=== PATIENT | male | born 1960 | race Caucasian/White ===

== ENCOUNTER → 2016-09-16 | Outpatient (REF) | payer BC ==
[~2016-09-16] MED LIST: ALLO10TA PO; ASPI1TAB; COUM2.5T11 PO; FERR324T12 PO; MULTCAP PO; OXYC-299 PO; PERCOCET PO; TYLE325T5 PO; VITA500T3 PO
[2016-09-16 11:42] LABS: ALT/SGPT 34 U/L (12-78); ANION GAP 10 MEQ/L (8-16); BLOOD UREA NITROGEN 15 MG/DL (7-18); CALCIUM LEVEL 8.7 MG/DL (8.5-10.1); CARBON DIOXIDE LEVEL 29 MEQ/L (21-32); CHLORIDE LEVEL 105 MEQ/L (98-107); CHOLESTEROL LEVEL 150 MG/DL (<200); CREATININE FOR GFR 0.95 MG/DL (0.70-1.30); GLOMERULAR FILTRATION RATE > 60.0 (>56); GLUCOSE, FASTING 97 MG/DL (70-105); POTASSIUM SERUM 3.8 MEQ/L (3.5-5.1); SODIUM LEVEL 144 MEQ/L (136-145); TRIGLYCERIDES LEVEL 135 MG/DL (<150)
== END | disposition home or self-care (01) ==
LOC: M SFHCCLAY 07:07
PROVIDERS: ATTEND Family Medicine
DX: E78.00 Pure hypercholesterolemia, unspecified (principal)

== ENCOUNTER → 2016-11-22 | Outpatient (REF) | payer BC ==
[2016-11-22 11:45] LABS: BASO % 0.6 % (0.0-1.0); EOS # 0.2 K/mm3 (0.0-0.50); EOS % 2.8 % (0.0-3.0); LARGE UNSTAINED CELL # 0.1 K/mm3 (0.0-0.4); LARGE UNSTAINED CELL % 1.1 % (0.0-4.0); LYMPH # 1.1 K/mm3 (1.5-4.5); LYMPH % 17.9 % (24.0-44.0); MEAN CORPUSCULAR HGB CONC 33.2 g/dl (32.0-36.5); MEAN CORPUSCULAR VOLUME 87.3 fl (80.0-96.0); MONO # 0.3 K/mm3 (0.0-0.8); MONO % 5.6 % (0.0-5.0); NEUTROPHILS # 4.2 K/mm3 (1.8-7.7); NEUTROPHILS % 72.1 % (36.0-66.0); PLATELET COUNT, AUTOMATED 173 k/mm3 (150-450); RED CELL DISTRIBUTION WIDTH 14.1 % (11.5-14.5); WHITE BLOOD COUNT 5.8 K/mm3 (4.0-10.0)
[2016-11-22 12:06] LABS: VITAMIN B12 LEVEL 1065 PG/ML (247-911)
[2016-11-22 12:38] LABS: ALBUMIN 3.9 GM/DL (3.2-5.2); ALBUMIN/GLOBULIN RATIO 1.26 (1.00-1.93); ALKALINE PHOSPHATASE 91 U/L (45-117); ALT/SGPT 46 U/L (12-78); ANION GAP 9 MEQ/L (8-16); AST/SGOT 32 U/L (15-37); BILIRUBIN,TOTAL 0.5 MG/DL (0.2-1.0); BLOOD UREA NITROGEN 14 MG/DL (7-18); CALCIUM LEVEL 9.4 MG/DL (8.5-10.1); CARBON DIOXIDE LEVEL 27 MEQ/L (21-32); CHLORIDE LEVEL 105 MEQ/L (98-107); CREATININE FOR GFR 0.86 MG/DL (0.70-1.30); FERRITIN 117 NG/ML (26-388); GLOMERULAR FILTRATION RATE > 60.0 (>56); GLUCOSE, FASTING 101 MG/DL (70-105); MAGNESIUM LEVEL 1.8 MG/DL (1.8-2.4); PERCENT SATURATION 28.3 % (19.7-37.4); SODIUM LEVEL 141 MEQ/L (136-145); TOTAL IRON BINDING CAPACITY 357 UG/DL (250-450)
[2016-11-22 13:40] LABS: PRETREATED FOLATE FOR RBCFOL > 24.0 NG/ML
== END ==
LOC: M LABDRAWC 11:31
PROVIDERS: ATTEND Surgery
DX: K91.2 Postsurgical malabsorption, not elsewhere classified (principal); E55.9 Vitamin D deficiency, unspecified; Z98.84 Bariatric surgery status

== ENCOUNTER → 2017-07-13 | Outpatient (REF) | payer BC ==
[~2017-07-13] MED LIST changes: -COUM2.5T11 PO; +COUM2.5T17 PO; +OXYC-141 PO; -OXYC-299 PO
== END ==
LOC: M SFHCCLAY 07:01
PROVIDERS: ATTEND Family Medicine
DX: Z98.84 Bariatric surgery status (principal)

== ENCOUNTER 2017-08-11 07:16 | Day surgery (SDC) | payer BC ==
[~2017-08-11] VITALS: Ht 175.3 cm; Wt 120.2 kg
[~2017-08-11 07:16] MED LIST changes: +ATOR1TAB19 PO; +HYDR25TAB PO; +LIDOCAINE 1% MDV 20ML VIAL SQ PRN; +LISI-538 PO; +LR 1,000 ML IV ONE; +PANT40TA2 PO; +PRESCAP6 PO
[2017-08-11] MEDS ORDERED: fentaNYL 100 MCG/2 ML INJECTION (J3010) As Ordered ONE ×2 (07:59→09:01)
[2017-08-11] MEDS ORDERED: MIDAZOLAM INJ 2 MG/2 ML VIAL (J2250) As Ordered ONE (07:59)
[2017-08-11] MEDS ORDERED: PROPOFOL 200 MG/20 ML VIAL As Ordered ONE (08:01)
[2017-08-11] MEDS ORDERED: ONDANSETRON 4MG/2ML VIAL (J2405) As Ordered ONE (08:02)
[2017-08-11] MEDS ORDERED: LIDOCAINE 2% INJ 100 MG/5 ML SDV (FOR ANES.) As Ordered ONE (08:02)
[2017-08-11] MEDS ORDERED: BUPIVACAINE HCL 0.25% 30 ML VIAL As Ordered ONE (08:14)
[2017-08-11] MEDS ORDERED: ROCURONIUM BROMIDE 50 MG/5 ML VIAL As Ordered ONE ×2 (08:22→09:23)
[2017-08-11] MEDS ORDERED: NEOSTIGMINE 10 MG/10 ML VIAL (J2710) As Ordered ONE (09:46)
[2017-08-11] MEDS ORDERED: GLYCOPYRROLATE INJ 0.2 MG/ML 2 ML VIAL As Ordered ONE (09:46)
[2017-08-11] MEDS ORDERED: fentaNYL 100 MCG/2 ML INJECTION (J3010) IV PRN (11:00)
[2017-08-11] MEDS ORDERED: NORCO, ANEXSIA 5/325MG TABLET (HYDROcodone/ACETAMINOPHEN) PO PRN (11:00)
[2017-08-11] MEDS ORDERED: ONDANSETRON 4MG/2ML VIAL (J2405) IV PRN (11:00)
[2017-08-11] MEDS ORDERED: ACETAMINOPHEN TAB 650MG DOSE (2X325MG) PO PRN (11:00)
[2017-08-11] MEDS ORDERED: PERCOCET 5MG/325MG TAB PO PRN (11:00)
[2017-08-11] MEDS ORDERED: MORPHINE 10 MG/ML 1ML VIAL IV PRN (11:00)
[2017-08-11] MEDS ORDERED: METOCLOPRAMIDE INJ 10MG/2ML VIAL (J2765) IV PRN (11:00)
[2017-08-11] MEDS ORDERED: LR 1,000 ML IV SCH (11:00)
[2017-08-11 13:10] VITALS: BP 158/95
--- NOTE | 2017-08-12 12:38 | RO ---
DATE OF PROCEDURE: 08/11/2017 PREOPERATIVE DIAGNOSIS: Ventral incisional hernia. POSTOPERATIVE DIAGNOSIS: Multiple ventral incisional hernias (3). PROCEDURE PERFORMED: Repair of ventral incisional hernias with mesh. SURGEON: Dr. Jorge Lai PC TECH: ANESTHESIA: General. INDICATIONS FOR PROCEDURE: The patient is a 57-year-old man who has undergone several laparoscopic procedures using a site above the umbilicus. He has developed a hernia in this area which protrudes slightly to the left of the umbilicus. He has developed some discomfort and is now for repair. OPERATIVE PROCEDURE: The patient was placed under general endotracheal anesthesia. The patient's abdomen was prepped and draped in a sterile fashion. An approximately 4-5 cm incision was made beginning in the midline and extending down around the upper right aspect of the umbilicus. The incision was deepened into the subcutaneous tissues. In deepening the incision toward the fascia, the patient was noted to have not one, but a total of three fascial defects. The smallest and most superior was perhaps 3-5 mm in size and had a very small frond of fat protruding. The next inferior was 6-8 mm in size and contained a small frond of omentum that was entrapped. The largest defect and the one that had been palpable contained some incarcerated omentum within a hernia sac that was perhaps 3 cm x 4 cm x 3 cm. This was isolated at the level of the fascia and the sac was incised and the omentum was then transected carefully with the cautery and the sac and the contents were removed. The defect at this level was perhaps 1.5 cm in diameter. Palpation through the largest defect showed no other significant abnormalities and there were no significant adhesions of the intra-abdominal tissues around the umbilicus. I elected to connect the three defects down the midline and place a piece of prosthetic mesh to reinforce this area. The fascial bridges were incised and this yielded a defect approximately 4 to 4.5 cm in length. A 6 x 11 cm piece of ultra Pro was selected and a portion of this was cut, yielding a roughly 5 x 7 cm patch. This was trimmed at the corners. This was sutured at the superior and inferior aspects of the defect with simple sutures of #2-0 Ethibond. Three additional Ethibond sutures were placed down each side of the defect suturing this approximately 2 cm back from the edge of the fascia on each side. This appeared to give a nice placement of the mesh. The fascial edges were then trimmed slightly and the midline fascia was closed with interrupted simple sutures of #0 Ethibond. Approximately 20 mL of 0.25% Marcaine were then infiltrated around the wound and into the fascia. The umbilical skin was tacked down to the fascia with a single #1 Vicryl suture. The subcutaneous tissues were approximated with several buried sutures of #1 Vicryl. Skin edges were approximated with a running subcuticular #4-0 Vicryl and Steri-Strips. A light dressing was applied. The patient tolerated the procedure well without apparent complication. He was awakened in the operating room, extubated and moved to the recovery room in stable condition. SIVAKUMAR
== END 2017-08-11 13:17 | disposition home or self-care (01) ==
LOC: M SDC 07:16
PROVIDERS: ATTEND Surgery
DX: K43.9 Ventral hernia without obstruction or gangrene (principal); I10 Essential (primary) hypertension; E78.00 Pure hypercholesterolemia, unspecified; E11.9 Type 2 diabetes mellitus without complications; K21.9 Gastro-esophageal reflux disease without esophagitis; E66.01 Morbid (severe) obesity due to excess calories; M12.9 Arthropathy, unspecified; G47.33 Obstructive sleep apnea (adult) (pediatric); Z79.899 Other long term (current) drug therapy; Z98.84 Bariatric surgery status; Z87.442 Personal history of urinary calculi; Z96.643 Presence of artificial hip joint, bilateral
CPT/HCPCS: 49560; 49568; 88302; C1781; J2250; J2405; J2710; J3010

== ENCOUNTER → 2018-01-11 | Outpatient (CLI) | payer OTHER | LOC: M CLY 11:45 | DX: R07.81 Pleurodynia (principal) | CPT/HCPCS: 71101 ==

== ENCOUNTER → 2018-03-01 | Outpatient (REF) | payer OTHER ==
[2018-03-01 11:36] LABS: HEMATOCRIT 47.2 % (42.0-52.0); HEMOGLOBIN 15.1 g/dl (13.5-17.5); MEAN CORPUSCULAR HEMOGLOBIN 28.1 pg (27.0-33.0); MEAN CORPUSCULAR VOLUME 87.9 fl (80.0-96.0); PLATELET COUNT, AUTOMATED 213 10^3/uL (150-450); RED BLOOD COUNT 5.37 10^6/uL (4.30-6.10); RED CELL DISTRIBUTION WIDTH 14.8 % (11.5-14.5); WHITE BLOOD COUNT 7.2 10^3/uL (4.0-10.0)
[2018-03-01 11:55] LABS: PTH INTACT 52.3 PG/ML (18.5-88.0)
[2018-03-01 12:00] LABS: ALBUMIN 3.7 GM/DL (3.2-5.2); ALBUMIN/GLOBULIN RATIO 1.16 (1.00-1.93); ALKALINE PHOSPHATASE 81 U/L (45-117); ALT/SGPT 34 U/L (12-78); ANION GAP 8 MEQ/L (8-16); AST/SGOT 22 U/L (7-37); BILIRUBIN,TOTAL 0.4 MG/DL (0.2-1.0); BLOOD UREA NITROGEN 13 MG/DL (7-18); CALCIUM LEVEL 8.9 MG/DL (8.5-10.1); CARBON DIOXIDE LEVEL 28 MEQ/L (21-32); CHLORIDE LEVEL 105 MEQ/L (98-107); CHOLESTEROL LEVEL 182 MG/DL (<200); CHOLESTEROL RISK RATIO 3.192 (<5); CREATININE FOR GFR 0.91 MG/DL (0.70-1.30); GLOMERULAR FILTRATION RATE > 60.0 (>56); GLUCOSE, FASTING 96 MG/DL (70-100); HDL CHOLESTEROL 57 MG/DL (>40); NON-HDL-C 125 MG/DL; POTASSIUM SERUM 4.3 MEQ/L (3.5-5.1); SODIUM LEVEL 141 MEQ/L (136-145); TOTAL PROTEIN 6.9 GM/DL (6.4-8.2); TRIGLYCERIDES LEVEL 215 MG/DL (<150)
[2018-03-01 13:01] LABS: ESTIMATED AVERAGE GLUCOSE 128 MG/DL (60-110); HEMOGLOBIN A1c 6.1 %
== END ==
LOC: M SFHCCLAY 08:08
DX: D50.0 Iron deficiency anemia secondary to blood loss (chronic) (principal); Z98.84 Bariatric surgery status; E11.9 Type 2 diabetes mellitus without complications; R07.81 Pleurodynia; E78.00 Pure hypercholesterolemia, unspecified

== ENCOUNTER → 2018-07-05 | Outpatient (CLI) | payer OTHER | LOC: M CLY 10:54 | DX: M54.2 Cervicalgia (principal) ==

== ENCOUNTER → 2019-01-24 | Outpatient (REF) | payer OTHER ==
[~2019-01-24] MED LIST changes: -ASPI1TAB; +ASPI81TA26; -LIDOCAINE 1% MDV 20ML VIAL SQ PRN; -LR 1,000 ML IV ONE; -PANT40TA2 PO; +PANT40TA3 PO
== END ==
LOC: M SFHCCLAY 07:35
PROVIDERS: ATTEND Family Medicine
DX: E11.9 Type 2 diabetes mellitus without complications (principal); I10 Essential (primary) hypertension; R07.89 Other chest pain; Z98.84 Bariatric surgery status; Z53.9 Procedure and treatment not carried out, unspecified reason

== ENCOUNTER → 2019-07-31 | Outpatient (REF) | payer OTHER ==
[~2019-07-31] MED LIST changes: +CYAN500T8 PO; -VITA500T3 PO
== END ==
LOC: M SFHCCLAY 09:54
PROVIDERS: ATTEND Family Medicine
DX: M79.602 Pain in left arm (principal); M79.601 Pain in right arm

== ENCOUNTER → 2019-10-09 | Outpatient (REF) | payer OTHER | LOC: M LAB REF 17:31 | PROVIDERS: ATTEND Dermatology | DX: D49.2 Neoplasm of unspecified behavior of bone, soft tissue, and skin (principal) ==

== ENCOUNTER → 2020-08-19 | Outpatient (REF) | payer OTHER ==
[~2020-08-19] MED LIST changes: +CYAN500T14 PO; -CYAN500T8 PO; +PANT40TA29 PO; -PANT40TA3 PO
== END ==
LOC: M SFHCCLAY 08:18
PROVIDERS: ATTEND Family Medicine
DX: Z28.21 Immunization not carried out because of patient refusal (principal); E11.9 Type 2 diabetes mellitus without complications; I10 Essential (primary) hypertension; Z98.84 Bariatric surgery status

== ENCOUNTER → 2020-10-15 | Outpatient (CLI) | payer OTHER ==
[~2020-10-15] MED LIST changes: +HYDR-3490 PO; -HYDR25TAB PO; -LISI-538 PO; +LISI20TA20 PO; +LISI20TA33 PO; +ROSU10TA6 PO; +VITMTA PO
== END ==
LOC: M LABSMTC 11:07
PROVIDERS: ATTEND Anesthesiology
DX: Z01.812 Encounter for preprocedural laboratory examination (principal); Z20.822 Contact with and (suspected) exposure to COVID-19

== ENCOUNTER 2020-10-20 09:37 | Day surgery (SDC) | payer OTHER ==
[~2020-10-20] VITALS: Ht 175.3 cm; Wt 126.1 kg
[~2020-10-20 09:37] MED LIST changes: +LIDOCAINE 2% 100MG/5ML SDV (FOR ANES.) As Ordered ONE; +NS 1,000 ML IV ONE; +fentaNYL 100 MCG/2 ML INJECTION (J3010) As Ordered ONE; +propofoL 200 MG/20 ML VIAL As Ordered ONE
--- NOTE | 2020-10-20 11:10 | ROOR ---
Patient Name: Robel Kirkland Procedure Date: 10/20/2020 10:51 AM Date of : 1960 Age: 60 Room: [facility] Gender: Male Note Status: Finalized Procedure: Upper GI endoscopy + Cold Snare Polypectomy + Hemoclip Indications: Heme positive stool Providers: Feroz Daley MD Referring MD: Ray Grullon Requesting Provider: Medicines: Monitored Anesthesia Care Complications: No immediate complications. Procedure: Pre-Anesthesia Assessment: - The heart rate, respiratory rate, oxygen saturations, blood pressure, adequacy of pulmonary ventilation, and response to care were monitored throughout the procedure. The Endoscope was introduced through the mouth, and advanced to the second part of duodenum. The upper GI endoscopy was accomplished without difficulty. The patient tolerated the procedure well. Findings: The Z-line was regular and was found 40 cm from the incisors. Evidence of a gastric bypass was found. A gastric pouch with a medium size was found. The staple line appeared intact. The gastrojejunal anastomosis was characterized by healthy appearing mucosa. Diffuse moderate inflammation characterized by adherent blood, congestion (edema), erosions and mucus was found in the gastric body. A single small pedunculated polyp with no stigmata of recent bleeding was found in the stomach. The polyp was removed with a cold snare. Resection and retrieval were complete. To prevent bleeding after the polypectomy, one hemostatic clip was successfully placed (MR conditional). There was no bleeding at the end of the procedure. The exam was otherwise without abnormality. Impression: - Z-line regular, 40 cm from the incisors. - Gastric bypass with a medium-sized pouch and intact staple line. Gastrojejunal anastomosis characterized by healthy appearing mucosa. - Gastritis. - A single gastric polyp. Resected and retrieved. Clip (MR conditional) was placed. - The examination was otherwise normal. Recommendation: - Patient has a contact number available for emergencies. The signs and symptoms of potential delayed complications were discussed with the patient. Return to normal activities tomorrow. Written discharge instructions were provided to the patient. - Resume previous diet. - Follow an antireflux regimen. - Use Prilosec (omeprazole) 40 mg PO daily. - Await pathology results. - Telephone GI clinic for pathology results in 1 week. - Return to referring physician. - The findings and recommendations were discussed with the patient. Procedure Code(s): --- Professional --- 64550, Esophagogastroduodenoscopy, flexible, transoral; with removal of tumor(s), polyp(s), or other lesion(s) by snare technique Diagnosis Code(s): --- Professional --- Z98.84, Bariatric surgery status K29.70, Gastritis, unspecified, without bleeding K31.7, Polyp of stomach and duodenum R19.5, Other fecal abnormalities CPT copyright 2019 [employer] [place] [employer]. All rights reserved. The codes documented in this report are preliminary and upon dental chair assembler review may be revised to meet current compliance requirements. Feroz Daley MD Feroz Daley MD 10/20/2020 11:09:45 AM Electronically signed by Feroz Daley MD Number of Addenda: 0 Note Initiated On: 10/20/2020 10:51 AM Estimated Blood Loss: Estimated blood loss: none.
--- NOTE | 2020-10-20 11:28 | ROOR ---
Patient Name: Robel Kirkland Procedure Date: 10/20/2020 10:52 AM Date of : 1960 Age: 60 Room: [facility] Gender: Male Note Status: Finalized Procedure: Total Colonoscopy to Cecum + Cold Snare Polypectomy + Hemoclip Indications: Positive fecal immunochemical test Providers: Feroz Daley MD Referring MD: Jose F Burkett MD Requesting Provider: Medicines: Monitored Anesthesia Care Complications: No immediate complications. Procedure: Pre-Anesthesia Assessment: - The heart rate, respiratory rate, oxygen saturations, blood pressure, adequacy of pulmonary ventilation, and response to care were monitored throughout the procedure. The Colonoscope was introduced through the anus and advanced to the cecum, identified by appendiceal orifice and ileocecal valve. The colonoscopy was performed without difficulty. The patient tolerated the procedure well. The quality of the bowel preparation was good. Findings: The perianal and digital rectal examinations were normal. Non-bleeding internal hemorrhoids were found during retroflexion. The hemorrhoids were small and Grade I (internal hemorrhoids that do not prolapse). A small polyp was found in the ascending colon. The polyp was sessile. The polyp was removed with a jumbo cold forceps. Resection and retrieval were complete. A medium polyp was found in the transverse colon. The polyp was sessile. The polyp was removed with a cold snare. Resection and retrieval were complete. To prevent bleeding after the polypectomy, one hemostatic clip was successfully placed (MR conditional). There was no bleeding at the end of the procedure. The exam was otherwise without abnormality on direct and retroflexion views. Impression: - Non-bleeding internal hemorrhoids. - One small polyp in the ascending colon, removed with a jumbo cold forceps. Resected and retrieved. - One medium polyp in the transverse colon, removed with a cold snare. Resected and retrieved. Clip (MR conditional) was placed. - The examination was otherwise normal on direct and retroflexion views. - The exam was otherwise normal to the cecum. Recommendation: - Patient has a contact number available for emergencies. The signs and symptoms of potential delayed complications were discussed with the patient. Return to normal activities tomorrow. Written discharge instructions were provided to the patient. - High fiber diet. - Discharge patient to home. - Continue present medications. - Await pathology results. - Telephone GI clinic for pathology results in 1 week. - Return to referring physician. - The findings and recommendations were discussed with the patient. Procedure Code(s): --- Professional --- 33140, Colonoscopy, flexible; with removal of tumor(s), polyp(s), or other lesion(s) by snare technique 42179, 59, Colonoscopy, flexible; with biopsy, single or multiple Diagnosis Code(s): --- Professional --- K64.0, First degree hemorrhoids K63.5, Polyp of colon R19.5, Other fecal abnormalities CPT copyright 2019 [employer]. All rights reserved. The codes documented in this report are preliminary and upon operations inspector review may be revised to meet current compliance requirements. Feroz Daley MD Feroz Daley MD 10/20/2020 11:27:45 AM Electronically signed by Feroz Daley MD Number of Addenda: 0 Note Initiated On: 10/20/2020 10:52 AM Estimated Blood Loss: Estimated blood loss: none.
[2020-10-20 11:45] VITALS: BP 148/88
== END 2020-10-20 11:57 | disposition home or self-care (01) ==
LOC: M OPP 09:37
PROVIDERS: ATTEND Internal Medicine Gastroenterology
DX: R19.5 Other fecal abnormalities (principal); D12.2 Benign neoplasm of ascending colon; D12.3 Benign neoplasm of transverse colon; K64.0 First degree hemorrhoids; K31.7 Polyp of stomach and duodenum; K29.70 Gastritis, unspecified, without bleeding; Z98.84 Bariatric surgery status; I10 Essential (primary) hypertension; E78.5 Hyperlipidemia, unspecified; R12 Heartburn; M19.90 Unspecified osteoarthritis, unspecified site; Z96.643 Presence of artificial hip joint, bilateral; Z96.652 Presence of left artificial knee joint; Z79.899 Other long term (current) drug therapy
CPT/HCPCS: 43251; 45380; 45385; 88305; J3010

== ENCOUNTER → 2021-08-31 | Outpatient (REF) | payer OTHER ==
[~2021-08-31] MED LIST changes: -LIDOCAINE 2% 100MG/5ML SDV (FOR ANES.) As Ordered ONE; -NS 1,000 ML IV ONE; -fentaNYL 100 MCG/2 ML INJECTION (J3010) As Ordered ONE; -propofoL 200 MG/20 ML VIAL As Ordered ONE
== END ==
LOC: M SFHCCLAY 10:32
PROVIDERS: ATTEND Family Medicine
DX: E11.9 Type 2 diabetes mellitus without complications (principal); I10 Essential (primary) hypertension; N20.0 Calculus of kidney; Z53.8 Procedure and treatment not carried out for other reasons

== ENCOUNTER → 2022-03-02 | Outpatient (REF) | payer OTHER ==
[~2022-03-02] MED LIST changes: -LISI20TA20 PO; +LISI20TA37 PO
== END ==
LOC: M SFHCCLAY 10:43
PROVIDERS: ATTEND Family Medicine
DX: E11.9 Type 2 diabetes mellitus without complications (principal)

== ENCOUNTER → 2022-09-02 | Outpatient (CLI) | payer OTHER | LOC: M CLY 14:19 | PROVIDERS: ATTEND Family Medicine | DX: R05.9 Cough, unspecified (principal) ==

== ENCOUNTER → 2022-09-07 | Outpatient (REF) | payer OTHER | LOC: M SFHCCLAY 08:18 | PROVIDERS: ATTEND Family Medicine | DX: I10 Essential (primary) hypertension (principal); E11.9 Type 2 diabetes mellitus without complications; Z98.84 Bariatric surgery status; Z12.5 Encounter for screening for malignant neoplasm of prostate ==

== ENCOUNTER → 2022-09-12 | Outpatient (CLI) | payer OTHER | LOC: M SOG 08:05 | PROVIDERS: ATTEND Orthopaedic Surgery Adult Reconstructive Orthopaedic Surgery | DX: M25.561 Pain in right knee (principal); M25.562 Pain in left knee ==

== ENCOUNTER → 2022-12-26 | Outpatient (REF) | payer OTHER | LOC: M SFHCCAPE 13:46 | PROVIDERS: ATTEND Physician Assistant | DX: J02.9 Acute pharyngitis, unspecified (principal); J22 Unspecified acute lower respiratory infection ==

== ENCOUNTER → 2023-03-03 | Outpatient (REF) | payer OTHER ==
[2023-03-03 12:15] LABS: ALBUMIN 3.5 G/DL (3.2-5.2); ALKALINE PHOSPHATASE 72 U/L (46-116); ALT/SGPT 35 U/L (7.0-40); AST/SGOT 26 U/L (<34); BILIRUBIN,TOTAL 0.4 MG/DL (0.3-1.2); BLOOD UREA NITROGEN 13 MG/DL (9-23); CARBON DIOXIDE LEVEL 31 MMOL/L (20-31); CHLORIDE LEVEL 102 MMOL/L (98-107); CHOLESTEROL LEVEL 201 MG/DL (<200); CHOLESTEROL RISK RATIO 3.34 (<5); CREATININE FOR GFR 0.81 MG/DL (0.70-1.30); GLOMERULAR FILTRATION RATE > 60.0 (>49); GLUCOSE, FASTING 98 MG/DL (74-106); HDL CHOLESTEROL 60.1 MG/DL (>40); LDL CHOLESTEROL 102.7 MG/DL (<100); NON-HDL-C 140.9 MG/DL; SODIUM LEVEL 139 MMOL/L (136-145); TOTAL PROTEIN 6.4 G/DL (5.7-8.2); TRIGLYCERIDES LEVEL 191 MG/DL (<150)
[2023-03-03 12:28] LABS: HEMOGLOBIN A1c 6.6 % (4.0-6.0)
== END ==
LOC: M SFHCCLAY 09:04
PROVIDERS: ATTEND Family Medicine
DX: I10 Essential (primary) hypertension (principal); E11.9 Type 2 diabetes mellitus without complications; Z98.84 Bariatric surgery status

== ENCOUNTER → 2023-09-01 | Outpatient (REF) | payer MEDICARE, OTHER ==
[2023-09-01 12:26] LABS: ALT/SGPT 37 U/L (7.0-40); BLOOD UREA NITROGEN 18 MG/DL (9-23); CARBON DIOXIDE LEVEL 34 MMOL/L (20-31); CHLORIDE LEVEL 102 MMOL/L (98-107); CHOLESTEROL LEVEL 175 MG/DL (<200); CHOLESTEROL RISK RATIO 2.81 (<5); CREATININE FOR GFR 0.83 MG/DL (0.70-1.30); GLOMERULAR FILTRATION RATE > 60.0 (>49); GLUCOSE, FASTING 127 MG/DL (74-106); HDL CHOLESTEROL 62.2 MG/DL (>40); LDL CHOLESTEROL 72.4 MG/DL (<100); NON-HDL-C 112.8 MG/DL; POTASSIUM SERUM 4.2 MMOL/L (3.5-5.1); SODIUM LEVEL 142 MMOL/L (136-145); TRIGLYCERIDES LEVEL 202 MG/DL (<150)
[2023-09-01 13:08] LABS: HEMOGLOBIN A1c 7.2 % (4.0-6.0)
== END ==
LOC: M SFHCCLAY 08:54
PROVIDERS: ATTEND Family Medicine
DX: I10 Essential (primary) hypertension (principal); E11.9 Type 2 diabetes mellitus without complications; E78.00 Pure hypercholesterolemia, unspecified

== ENCOUNTER → 2023-10-03 | Outpatient (REF) | payer MEDICARE, OTHER ==
[2023-10-03 18:33] LABS: HIV 1&2 SCREEN NEGATIVE (NEGATIVE)
[2023-10-03 18:41] LABS: HEPATITIS C VIRUS ABY INDEX < 0.02 INDEX (<0.8)
[2023-10-03 18:42] LABS: HEPATITIS B CORE ANTIBODY IGM NEGATIVE (NEGATIVE)
== END ==
LOC: M SFHCCLAY 10:16
PROVIDERS: ATTEND Physician Assistant
DX: Z79.899 Other long term (current) drug therapy (principal)

== ENCOUNTER → 2024-03-06 | Outpatient (REF) | payer MEDICARE, OTHER ==
[~2024-03-06] MED LIST changes: -ROSU10TA6 PO; +ROSU10TA61 PO; +THERTAB52 PO; +TREM100I SC
[2024-03-06 17:32] LABS: HEMATOCRIT 45.6 % (42.0-52.0); HEMOGLOBIN 14.4 g/dl (13.5-17.5); MEAN CORPUSCULAR HEMOGLOBIN 28.6 pg (27.0-33.0); MEAN CORPUSCULAR HGB CONC 31.6 g/dl (32.0-36.5); MEAN CORPUSCULAR VOLUME 90.5 fl (80.0-96.0); PLATELET COUNT, AUTOMATED 203 10^3/uL (150-450); RED BLOOD COUNT 5.04 10^6/uL (4.30-6.10); WHITE BLOOD COUNT 6.7 10^3/uL (4.0-10.0)
[2024-03-06 18:03] LABS: ALBUMIN 3.7 G/DL (3.2-5.2); ALKALINE PHOSPHATASE 78 U/L (46-116); ALT/SGPT 43 U/L (7.0-40); AST/SGOT 39 U/L (<34); BILIRUBIN,TOTAL 0.4 MG/DL (0.3-1.2); BLOOD UREA NITROGEN 15 MG/DL (9-23); CALCIUM LEVEL 9.3 MG/DL (8.3-10.6); CARBON DIOXIDE LEVEL 32 MMOL/L (20-31); CHLORIDE LEVEL 102 MMOL/L (98-107); CHOLESTEROL LEVEL 174 MG/DL (<200); CHOLESTEROL RISK RATIO 2.95 (<5); CREATININE FOR GFR 0.84 MG/DL (0.70-1.30); GLOMERULAR FILTRATION RATE > 60.0 (>49); GLUCOSE, FASTING 113 MG/DL (74-106); HDL CHOLESTEROL 58.9 MG/DL (>40); LDL CHOLESTEROL 75.1 MG/DL (<100); MAGNESIUM LEVEL 1.8 MG/DL (1.8-2.4); NON-HDL-C 115.1 MG/DL; POTASSIUM SERUM 4.7 MMOL/L (3.5-5.1); PTH INTACT 49.4 PG/ML (18.5-88.0); SODIUM LEVEL 138 MMOL/L (136-145); TOTAL PROTEIN 6.7 G/DL (5.7-8.2); TRIGLYCERIDES LEVEL 200 MG/DL (<150); VITAMIN B12 LEVEL 730 PG/ML (211-911)
== END ==
LOC: M SFHCCLAY 10:16
PROVIDERS: ATTEND Family Medicine
DX: Z98.84 Bariatric surgery status (principal); Z79.899 Other long term (current) drug therapy; E11.9 Type 2 diabetes mellitus without complications; I10 Essential (primary) hypertension; E78.00 Pure hypercholesterolemia, unspecified; N20.0 Calculus of kidney

== ENCOUNTER 2024-03-25 06:58 | Day surgery (SDC) | payer MEDICARE, OTHER ==
[~2024-03-25] VITALS: Ht 175.3 cm; Wt 129.3 kg
[~2024-03-25 06:58] MED LIST changes: +NS 1,000 ML IV ONE
[2024-03-25] MEDS ORDERED: propofoL 200 MG/20 ML VIAL As Ordered ONE (07:02)
[2024-03-25 08:37] VITALS: TEMP 99.6
[2024-03-25 09:03] VITALS: BP 122/81; O2SAT 100
== END 2024-03-25 09:16 | disposition home or self-care (01) ==
LOC: M OPP 06:58
PROVIDERS: ATTEND Internal Medicine Gastroenterology
DX: Z12.11 Encounter for screening for malignant neoplasm of colon (principal); Z86.010 Personal history of colon polyps; D12.2 Benign neoplasm of ascending colon; K64.0 First degree hemorrhoids; K57.30 Diverticulosis of large intestine without perforation or abscess without bleeding; K22.89 Other specified disease of esophagus; Z98.84 Bariatric surgery status; R07.9 Chest pain, unspecified; E11.9 Type 2 diabetes mellitus without complications; G47.30 Sleep apnea, unspecified; Z99.89 Dependence on other enabling machines and devices; Z79.02 Long term (current) use of antithrombotics/antiplatelets; Z79.620 Long term (current) use of immunosuppressive biologic; Z79.899 Other long term (current) drug therapy

== ENCOUNTER → 2024-07-19 | Outpatient (REF) | payer MEDICARE, OTHER ==
[~2024-07-19] MED LIST changes: -NS 1,000 ML IV ONE
[2024-07-19 17:13] LABS: HEMATOCRIT 46.6 % (42.0-52.0); HEMOGLOBIN 14.5 g/dl (13.5-17.5); MEAN CORPUSCULAR HEMOGLOBIN 28.4 pg (27.0-33.0); MEAN CORPUSCULAR HGB CONC 31.1 g/dl (32.0-36.5); MEAN CORPUSCULAR VOLUME 91.4 fl (80.0-96.0); PLATELET COUNT, AUTOMATED 188 10^3/uL (150-450); WHITE BLOOD COUNT 6.4 10^3/uL (4.0-10.0)
[2024-07-19 17:14] LABS: ALBUMIN 3.5 G/DL (3.2-5.2); ALKALINE PHOSPHATASE 73 U/L (40-129); ALT/SGPT 48 U/L (7.0-40); AST/SGOT 42 U/L (<34); BILIRUBIN,TOTAL 0.3 MG/DL (0.3-1.2); BLOOD UREA NITROGEN 16 MG/DL (9-23); CALCIUM LEVEL 9.7 MG/DL (8.3-10.6); CARBON DIOXIDE LEVEL 33 MMOL/L (20-31); CHLORIDE LEVEL 103 MMOL/L (98-107); CHOLESTEROL LEVEL 194 MG/DL (<200); CHOLESTEROL RISK RATIO 3.23 (<5); GLOMERULAR FILTRATION RATE > 60.0 (>49); GLUCOSE, FASTING 121 MG/DL (74-106); HDL CHOLESTEROL 59.9 MG/DL (>40); LDL CHOLESTEROL 88.7 MG/DL (<100); NON-HDL-C 134.1 MG/DL; POTASSIUM SERUM 4.4 MMOL/L (3.5-5.1); PSA SCREENING 0.28 NG/ML (< 4.00); SODIUM LEVEL 140 MMOL/L (136-145); TRIGLYCERIDES LEVEL 227 MG/DL (<150)
[2024-07-19 17:31] LABS: HEMOGLOBIN A1c 7.5 % (4.0-6.0)
== END ==
LOC: M SFHCCLAY 09:48
PROVIDERS: ATTEND Family Medicine
DX: E11.9 Type 2 diabetes mellitus without complications (principal); I10 Essential (primary) hypertension; L40.9 Psoriasis, unspecified; E78.00 Pure hypercholesterolemia, unspecified; Z12.5 Encounter for screening for malignant neoplasm of prostate
CPT/HCPCS: 80053; 80061; 83036; 85027; G0103

== ENCOUNTER → 2024-10-14 | Outpatient (REF) | payer MEDICARE ==
[2024-10-14 17:53] LABS: ALBUMIN 3.7 G/DL (3.2-5.2); ALKALINE PHOSPHATASE 73 U/L (40-129); ALT/SGPT 38 U/L (7.0-40); AST/SGOT 31 U/L (<34); BILIRUBIN,TOTAL 0.5 MG/DL (0.3-1.2); BLOOD UREA NITROGEN 18 MG/DL (9-23); CALCIUM LEVEL 9.3 MG/DL (8.3-10.6); CARBON DIOXIDE LEVEL 28 MMOL/L (20-31); CHLORIDE LEVEL 104 MMOL/L (98-107); CHOLESTEROL LEVEL 162 MG/DL (<200); CHOLESTEROL RISK RATIO 3.01 (<5); CREATININE FOR GFR 0.89 MG/DL (0.70-1.30); GLOMERULAR FILTRATION RATE > 60.0 (>49); GLUCOSE, FASTING 108 MG/DL (74-106); HDL CHOLESTEROL 53.7 MG/DL (>40); LDL CHOLESTEROL 71.5 MG/DL (<100); NON-HDL-C 108.3 MG/DL; POTASSIUM SERUM 4.4 MMOL/L (3.5-5.1); SODIUM LEVEL 139 MMOL/L (136-145); TOTAL PROTEIN 6.9 G/DL (5.7-8.2); TRIGLYCERIDES LEVEL 184 MG/DL (<150)
== END ==
LOC: M SFHCCLAY 08:37
PROVIDERS: ATTEND Nurse Practitioner Family
DX: E11.9 Type 2 diabetes mellitus without complications (principal); I10 Essential (primary) hypertension; E78.00 Pure hypercholesterolemia, unspecified; Z98.84 Bariatric surgery status; L40.9 Psoriasis, unspecified; G47.33 Obstructive sleep apnea (adult) (pediatric); K76.0 Fatty (change of) liver, not elsewhere classified

== ENCOUNTER → 2025-03-14 | Outpatient (REF) | payer MEDICARE ==
[2025-03-14 15:45] LABS: PSA SCREENING 0.39 NG/ML (< 4.00)
[2025-03-14 15:47] LABS: ALT/SGPT 25.0 U/L (7.0-40); AST/SGOT 30.0 U/L (<34); CALCIUM LEVEL 9.4 MG/DL (8.3-10.6); CARBON DIOXIDE LEVEL 29.0 MMOL/L (20-31); CHLORIDE LEVEL 101.0 MMOL/L (98-107); CHOLESTEROL LEVEL 159.0 MG/DL (<200); CHOLESTEROL RISK RATIO 2.68 (<5); CREATININE FOR GFR 1.05 MG/DL (0.70-1.30); GLOMERULAR FILTRATION RATE 78.3 (>49); LDL CHOLESTEROL 65.4 MG/DL (<100); NON-HDL-C 99.8 MG/DL; POTASSIUM SERUM 4.8 MMOL/L (3.5-5.1); SODIUM LEVEL 141.0 MMOL/L (136-145); TRIGLYCERIDES LEVEL 172.0 MG/DL (<150)
[2025-03-14 16:39] LABS: ESTIMATED AVERAGE GLUCOSE 114.0 MG/DL (60-110)
== END ==
LOC: M SFHCCLAY 09:36
PROVIDERS: ATTEND Nurse Practitioner Family
DX: E11.9 Type 2 diabetes mellitus without complications (principal); I10 Essential (primary) hypertension; E78.00 Pure hypercholesterolemia, unspecified; Z98.84 Bariatric surgery status; L40.9 Psoriasis, unspecified; G47.33 Obstructive sleep apnea (adult) (pediatric); K76.0 Fatty (change of) liver, not elsewhere classified; Z12.5 Encounter for screening for malignant neoplasm of prostate

== ENCOUNTER → 2025-08-06 | Outpatient (REF) | payer MEDICARE ==
[~2025-08-06] MED LIST changes: -ROSU10TA61 PO; +ROSU10TA90 PO
[2025-08-06 18:16] LABS: BASO # 0.0 10^3/uL (0.0-0.2); BASO % 0.6 % (0.0-1.0); EOS # 0.3 10^3/uL (0.0-0.5); EOS % 3.9 % (0.0-3.0); LYMPH # 1.3 10^3/uL (1.5-5.0); LYMPH % 20.6 % (24.0-44.0); MONO # 0.5 10^3/uL (0.0-0.8); MONO % 7.6 % (2.0-8.0); NEUTROPHILS # 4.3 10^3/uL (1.5-8.5); NEUTROPHILS % 67.1 % (36.0-66.0); PLATELET COUNT, AUTOMATED 214 10^3/uL (150-450)
[2025-08-06 18:22] LABS: ALT/SGPT 28 U/L (7.0-40); AST/SGOT 33 U/L (<34); CALCIUM LEVEL 9.1 MG/DL (8.3-10.6); CARBON DIOXIDE LEVEL 28 MMOL/L (20-31); CHLORIDE LEVEL 104 MMOL/L (98-107); CHOLESTEROL LEVEL 139 MG/DL (<200); CHOLESTEROL RISK RATIO 2.28 (<5); CREATININE FOR GFR 0.96 MG/DL (0.70-1.30); GLOMERULAR FILTRATION RATE 86.6 (>49); IRON (FE) 95 UG/DL (65-175); LDL CHOLESTEROL 49.9 MG/DL (<100); NON-HDL-C 78.3 MG/DL; PERCENT SATURATION 28.5 % (19.7-50.0); POTASSIUM SERUM 4.3 MMOL/L (3.5-5.1); SODIUM LEVEL 139 MMOL/L (136-145); TRIGLYCERIDES LEVEL 142 MG/DL (<150)
[2025-08-06 18:23] LABS: FREE T4 1.11 NG/DL (0.89-1.76)
[2025-08-06 18:24] LABS: VITAMIN B12 LEVEL 817 PG/ML (211-911)
[2025-08-06 18:58] LABS: ESTIMATED AVERAGE GLUCOSE 114.0 MG/DL (60-110)
== END ==
LOC: M SFHCCLAY 09:55
PROVIDERS: ATTEND Nurse Practitioner Family
DX: Z00.00 Encounter for general adult medical examination without abnormal findings (principal); I10 Essential (primary) hypertension; E11.9 Type 2 diabetes mellitus without complications; E78.00 Pure hypercholesterolemia, unspecified; Z98.84 Bariatric surgery status; L40.9 Psoriasis, unspecified; G47.33 Obstructive sleep apnea (adult) (pediatric); K76.0 Fatty (change of) liver, not elsewhere classified; L30.0 Nummular dermatitis